=== PATIENT | female | born 1960 | race Caucasian/White ===

== ENCOUNTER 2018-11-05 05:58 | Outpatient (CLI) | payer BC, MEDICARE ==
[~2018-11-05] VITALS: Ht 157.5 cm; Wt 78.9 kg
[2018-11-05] MEDS ORDERED: CARI350T PO (13:40)
[2018-11-05] MEDS ORDERED: ZOLP10TA PO (13:40)
[2018-11-05] MEDS ORDERED: LEVO137T2 PO (13:40)
[2018-11-05] MEDS ORDERED: OXYB5TAB9 PO (13:40)
[2018-11-05] MEDS ORDERED: DEXL60CA PO (13:40)
[2018-11-05] MEDS ORDERED: ZOLM2.5T5 PO (13:40)
[2018-11-05] MEDS ORDERED: HYDR50TA76 PO (13:40)
[2018-11-05] MEDS ORDERED: METO-310 PO (13:40)
[2018-11-05] MEDS ORDERED: HYDR-3812 PO (13:40)
[2018-11-05] MEDS ORDERED: MULT-884 PO (13:40)
[2018-11-05] MEDS ORDERED: VENL150T PO (13:40)
[2018-11-05] MEDS ORDERED: PRAV20TA3 PO (13:40)
== END 2018-11-05 13:45 | disposition home or self-care (01) ==
LOC: PREOP 05:58
PROVIDERS: ATTEND Orthopaedic Surgery Orthopaedic Surgery of the Spine
DX: Z01.818 Encounter for other preprocedural examination (principal)

== ENCOUNTER 2018-11-13 05:50 | Day surgery (SDC) | payer BC, MEDICARE ==
[2018-11-13] VITALS (10 sets, daily range): BP systolic 96–134; BP diastolic 66–93
[~2018-11-13] VITALS: Ht 157.5 cm; Wt 78.9 kg
[~2018-11-13 05:50] MED LIST: CARI350T PO; DEXL60CA PO; HYDR-3812 PO; HYDR50TA76 PO; LEVO137T2 PO; METO-310 PO; MULT-884 PO; OXYB5TAB9 PO; PRAV20TA3 PO; VENL150T PO; ZOLM2.5T5 PO; ZOLP10TA PO
[2018-11-13] MEDS: LACTATED RINGERS 1,000 ML IV PRN ×2 (06:30→08:18)
[2018-11-13] MEDS ORDERED: VANCOMYCIN 1000 MG/VIAL ONE (06:36)
[2018-11-13] MEDS ORDERED: GENTAMICIN 40 MG/ML 2 ML INJ SDV ONE (06:37)
[2018-11-13] MEDS ORDERED: BUP/EPI 0.25% 1:200,000 (MARCAINE) 10 ML VIAL IJ ONE (06:37)
[2018-11-13] MEDS ORDERED: fentaNYL INJECTION 100 MCG/2 ML AMP ONE (06:41)
[2018-11-13] MEDS ORDERED: LIDOCAINE PF 2% 5 ML (XYLOCAINE) VIAL ONE (06:41)
[2018-11-13] MEDS ORDERED: SEVOFLURANE (ULTANE) 15 ML INHAL SOLN ONE ×5 (06:41→08:43)
[2018-11-13] MEDS ORDERED: NEOSTIGMINE 3 MG/3 ML VIAL ONE (06:41)
[2018-11-13] MEDS ORDERED: MIDAZOLAM 2 MG/2 ML (VERSED) VIAL ONE (06:41)
[2018-11-13] MEDS ORDERED: ONDANSETRON 4 MG/2 ML (SDV) Z0FRAN ONE (06:41)
[2018-11-13] MEDS ORDERED: DEXAMETHASONE 10 MG/ML (DECADRON) 1 ML VIAL ONE (06:41)
[2018-11-13] MEDS ORDERED: proPOfol 200 MG/20 ML (DIPRIVAN) VIAL IV ONE (06:41)
[2018-11-13] MEDS ORDERED: GLYCOPYRROLATE 0.2 MG/ML (ROBINUL) 2 ML VIAL ONE (06:41)
[2018-11-13] MEDS ORDERED: ROCURONIUM 10 MG/ML 5 ML SYRINGE IV ONE (06:42)
[2018-11-13] MEDS ORDERED: ceFAZolin 2 GM/50 ML NS 50 ML IV ONE (06:45)
[2018-11-13] MEDS ORDERED: PROPOFOL INJECTION 0 ML IV ONE (07:03)
--- NOTE | 2018-11-13 07:10 | Progress Note-Pre Operative ---
Pre-Operative Progress Note H&P Reviewed The H&P was reviewed, patient examined and no changes noted. Date Seen by Provider: Nov 13, 2018 Time Seen by Provider: 07:09 Date H&P Reviewed: Nov 13, 2018 Time H&P Reviewed: 07:09 Pre-Operative Diagnosis: Lumbar Radiculopathy/Lumbago JO-ANN ALVARADO MD Nov 13, 2018 07:10
[2018-11-13] MEDS ORDERED: PROPOFOL INJECTION 50 ML IV ONE (07:55)
[2018-11-13] MEDS ORDERED: PHENYLEPHRINE 100 MCG/ML 10 ML (ANESTHESIA) SYR ONE (07:55)
[2018-11-13] MEDS ORDERED: SUCCINYLCHOLINE INJ 100 MG/5 ML SYR ONE (08:13)
[2018-11-13] MEDS ORDERED: RT-ALBUTEROL SULF 2.5 MG/3 ML PRE-MIX VIAL ONE (08:35)
--- NOTE | 2018-11-13 08:36 | Progress Note-Post Operative ---
Post-Operative Progess Note Surgeon (s)/Can Cleaner (s) Surgeon JO-ANN ALVARADO MD Can Cleaner: Jerry Amor, ANTOINE Pre-Operative Diagnosis Lumbar Radiculopathy/Lumbago Post-Operative Diagnosis Same Procedure & Operative Findings Date of Procedure 11/13/18 Procedure Performed/Findings Placement of permanent spinal cord stimulator via laminectomy Anesthesia Type GETA Estimated Blood Loss Estimated blood loss (mL): Min Specimens/Packing Specimens Removed None JO-ANN ALVARADO MD Nov 13, 2018 08:36
[2018-11-13] MEDS ORDERED: morphine INJ 10 MG/ML 1ML (SYR OR VIAL) IVP ONE (09:00)
[2018-11-13] MEDS ORDERED: ONDANSETRON 4 MG/2 ML (SDV) Z0FRAN IVP PRN (09:00)
[2018-11-13] MEDS ORDERED: HYDROmorphone 2 MG/ML VIAL (DILAUDID) IV ONE (09:00)
[2018-11-13] MEDS ORDERED: HYDROcodone/APAP 5 MG/325 MG (LORTAB) TAB ONE (09:41)
--- NOTE | 2018-11-13 09:50 | NUR ---
HYDROCODONE 5/325 MG GIVEN FOR MIDDLE BACK PAIN.
[2018-11-13] MEDS ORDERED: HYDROcodone/APAP 5 MG/325 MG (LORTAB) TAB PO ONE (10:00)
[2018-11-13] MEDS ORDERED: HYDROcodone/APAP 10 MG/325 MG (LORTAB) TAB PO ONE ×2 (10:13→10:30)
--- NOTE | 2018-11-13 10:20 | NUR ---
PATIENT STILL HAVING PAIN. DR. ALVARADO NOTIFIED. ORDER RECEIVED FOR HYDROCODONE 10/325 MG.
--- NOTE | 2018-11-13 10:52 | OPERATIVE REPORT ---
DATE OF SERVICE: 11/13/2018 PREOPERATIVE DIAGNOSES: Chronic lumbago and lumbar radiculopathy. POSTOPERATIVE DIAGNOSES: Chronic lumbago and lumbar radiculopathy. PROCEDURES PERFORMED: 1. T9-T10 level laminectomy for placement of paddle electrode for spinal cord stimulation. 2. Left-sided battery placement for spinal cord stimulator. DATE AND TIME OF SURGERY: Please see anesthesia record. IMPLANTS USED: [employer] MRI compatible rechargeable battery and Penta lead. SURGEON: Jo-Ann Real MD RN BONE MARROW TRANSPLANT: RADHA Noland ROLE OF THE RADIATION CONTROL WORKER: Aid in retraction of the procedure, aid in implantation and station wound closure. ANESTHESIA: General endotracheal. ESTIMATED BLOOD LOSS: Minimal. INTRAVENOUS FLUIDS: Please see anesthesia record. ANTIBIOTICS: Ancef. COMPLICATIONS: None. INDICATION FOR PROCEDURE: The patient is a 58-year-old female, who had a positive temporary trial, desires permanent placement. NEUROMONITORING: Standard intraoperative neuromonitoring carried out by means of real time continuous high quality bidirectional mode, audio and visual communication to both the automotive lube technician and surgeon by Dr. Simms was performed. SSEPs, EMGs and TOFs were carried out continuously throughout the procedure stable. DESCRIPTION OF PROCEDURE: The patient was taken to the preoperative holding area and brought back to the operative suite. After adequate induction of general anesthesia, preoperative antibiotics were placed prone on Juan table, careful padding to all extremities, sterilely prepped and draped to the posterior thoracolumbar spine. Localization of the T9-10 level was performed and a small laminotomy was created. A Penta lead was then passed into the epidural space into a midline position overlying the T7-T8 level where desired placement was placed and then it was anchored into lamina level. SurgiFlo and bipolar cautery and bone wax were used to aid in hemostasis. Hemostasis was assured. The fascia was then closed. It was again anchored at the fascial level. Strain relief loops were created and a pocket underneath the skin and then it was tunneled into the left-sided battery site over her left gluteal buttock region. It was connected to the battery. System was functioning well. Final imaging was obtained. The wounds were irrigated, closed in layers. The patient was transferred to recovery room in stable condition having tolerated the procedure well with stable spinal monitoring. Job ID: [id number] DocumentID: [id number] Dictated Date: 11/13/2018 08:39:00 Vascular Surgeon Date: 11/13/2018 10:51:08 Dictated By: JO-ANN REAL MD
--- NOTE | 2018-11-13 14:29 | Diagnostic Imaging Report ---
INDICATION: Fluoroscopy for spinal cord stimulator placement. FINDINGS: Fluoroscopy was provided in the OR during spinal cord simulator placement. 13 seconds of fluoroscopy was utilized. Images demonstrate a paddle stimulator in the midline thoracic spine at approximately the T8 level. IMPRESSION: Fluoroscopy for spinal cord stimulator placement. Dictated by: Dictated on workstation # [id number]
--- NOTE | 2018-11-13 14:37 | Anesthesia-General Post-Op ---
General Patient Condition Mental Status/LOC: Same as Preop Cardiovascular: Satisfactory Nausea/Vomiting: Absent Respiratory: Satisfactory Pain: Controlled Complications: Absent Post Op Complications Complications None Follow Up Care/Instructions Patient Instructions None needed. Anesthesia/Patient Condition Patient Condition Patient is doing well, no complaints, stable vital signs, no apparent adverse anesthesia problems. No complications reported per nursing. RUI CLINE CRNA Nov 13, 2018 14:37
== END 2018-11-13 10:55 | disposition home or self-care (01) ==
LOC: SDC 05:50
PROVIDERS: ATTEND Orthopaedic Surgery Orthopaedic Surgery of the Spine
DX: M54.16 Radiculopathy, lumbar region (principal); G89.29 Other chronic pain; M19.90 Unspecified osteoarthritis, unspecified site; E78.00 Pure hypercholesterolemia, unspecified; J45.909 Unspecified asthma, uncomplicated; K21.9 Gastro-esophageal reflux disease without esophagitis; G47.30 Sleep apnea, unspecified; F41.9 Anxiety disorder, unspecified; F32.9 Major depressive disorder, single episode, unspecified; G43.909 Migraine, unspecified, not intractable, without status migrainosus; E07.9 Disorder of thyroid, unspecified; Z90.710 Acquired absence of both cervix and uterus; Z98.51 Tubal ligation status; Z98.1 Arthrodesis status; Z79.899 Other long term (current) drug therapy; Z90.49 Acquired absence of other specified parts of digestive tract; Z79.891 Long term (current) use of opiate analgesic
CPT/HCPCS: 87081